=== PATIENT | male | born 1955 | race Caucasian/White ===

== ENCOUNTER 2022-12-24 10:00 | Outpatient (OUT) | payer MEDICARE, SELFPAY ==
[2022-12-24 10:30] LABS: Creatinine Urine Random 52.71 mg/dL (20.00-300.00); Protein Creatinine Ratio Urine 0.27
[2022-12-24 10:33] LABS: Basophils Absolute Auto 0.1 10^3/uL (0.0-0.1); Basophils Percent Auto 1.2 % (0.2-2.0); Eosinophils Absolute Auto 0.5 10^3/uL (0.0-0.7); Eosinophils Percent Auto 4.9 % (0.9-7.0); Hematocrit 45.6 % (42.0-54.0); Hemoglobin 15.1 g/dL (14.0-18.0); Immature Granulocytes Abs Auto 0.07 10^3/uL (0.00-0.03); Immature Granulocytes Pct Auto 0.6 % (0.0-0.5); Lymphocytes Absolute Auto 2.4 10^3/uL (1.2-3.8); Lymphocytes Percent Auto 21.5 % (20.5-60.0); Mean Corpuscular HGB Conc 33.1 g/dL (29.9-35.2); Mean Corpuscular Hemoglobin 28.8 pg (25.9-34.0); Mean Platelet Volume 11.3 fL (9.5-13.5); Monocytes Absolute Auto 0.8 10^3/uL (0.3-0.8); Monocytes Percent Auto 6.9 % (1.7-12.0); Neutrophils Absolute Auto 7.2 10^3/uL (1.4-6.5); Neutrophils Percent Auto 64.9 % (43.0-75.0); Platelet Count 383 10^3/uL (150-450); Red Blood Count 5.24 10^6/uL (4.70-6.10); Red Cell Distribution Width 13.1 % (11.0-15.0); White Blood Count 11.1 10^3/uL (4.0-11.0)
[2022-12-24 10:53] LABS: Estimated Average Glucose 329 mg/dL; Glycohemoglobin A1C 13.1 % (4.5-6.2)
[2022-12-24 11:22] LABS: Alanine Aminotransferase 32 U/L (16-63); Albumin Level 3.8 g/dL (3.4-5.0); Alkaline Phosphatase 141 U/L (46-116); Anion Gap 14.6; Aspartate Amino Transferase 13 U/L (15-37); BUN Creatinine Ratio 13.7; Bilirubin Total 0.5 mg/dL (0.2-1.0); Calcium 8.7 mg/dL (8.5-10.1); Carbon Dioxide 27.2 mmol/L (21.0-32.0); Chloride 96 mmol/L (98-107); Chol HDL Ratio 2.7; Cholesterol 189 mg/dL (<=200); Estimated GFR (African America >60 (>=60); Estimated GFR (Non-African Ame >60 (>=60); Globulin 3.9 g/dL; Glucose 345 mg/dL (74-106); HDL Cholesterol 70 mg/dL (40-60); Potassium 3.8 mmol/L (3.5-5.1); Sodium 134 mmol/L (136-145); Thyroid Stimulating Hormone 2.658 uIU/mL (0.358-3.740); Total Protein 7.7 g/dL (6.4-8.2); Triglycerides 105 mg/dL (<=150)
[2022-12-25 04:07] LABS: Triiodothyronine (T3) 87 ng/dL (71-180)
== END 2022-12-24 10:01 | disposition home or self-care (01) ==
LOC: LAB 10:03
PROVIDERS: PCP Internal Medicine; Visit Provider Internal Medicine
DX: I10 Essential (primary) hypertension (principal); E11.65 Type 2 diabetes mellitus with hyperglycemia; E03.9 Hypothyroidism, unspecified; E78.5 Hyperlipidemia, unspecified
CPT/HCPCS: 36415; 80053; 80061; 82570; 83036; 84156; 84436; 84443; 84480; 85025

== ENCOUNTER 2023-08-30 12:37 | Outpatient (OUT) | payer MEDICARE, SELFPAY ==
[2023-08-30 13:23] LABS: Creatinine Urine Random 58.98 mg/dL (20.00-300.00); Microalbumin Urine Random <1.3 mg/dL (<=30.0)
[2023-08-30 13:27] LABS: Basophils Absolute Auto 0.2 10^3/uL (0.0-0.1); Basophils Percent Auto 1.1 % (0.2-2.0); Eosinophils Absolute Auto 0.8 10^3/uL (0.0-0.7); Hematocrit 44.7 % (42.0-54.0); Hemoglobin 15.1 g/dL (14.0-18.0); Immature Granulocytes Abs Auto 0.05 10^3/uL (0.00-0.03); Immature Granulocytes Pct Auto 0.4 % (0.0-0.5); Lymphocytes Absolute Auto 2.9 10^3/uL (1.2-3.8); Mean Corpuscular HGB Conc 33.8 g/dL (29.9-35.2); Mean Corpuscular Hemoglobin 28.8 pg (25.9-34.0); Mean Corpuscular Volume 85.3 fL (80.0-94.0); Mean Platelet Volume 11.2 fL (9.5-13.5); Monocytes Absolute Auto 0.9 10^3/uL (0.3-0.8); Monocytes Percent Auto 6.7 % (1.7-12.0); Neutrophils Absolute Auto 8.9 10^3/uL (1.4-6.5); Neutrophils Percent Auto 64.8 % (43.0-75.0); Platelet Count 419 10^3/uL (150-450); Red Blood Count 5.24 10^6/uL (4.70-6.10); Red Cell Distribution Width 13.1 % (11.0-15.0); White Blood Count 13.7 10^3/uL (4.0-11.0)
[2023-08-30 13:52] LABS: Estimated Average Glucose 286 mg/dL; Glycohemoglobin A1C 11.6 % (4.5-6.2)
[2023-08-30 14:04] LABS: Alanine Aminotransferase 38 U/L (16-63); Albumin Globulin Ratio 1.2; Albumin Level 4.1 g/dL (3.4-5.0); Alkaline Phosphatase 130 U/L (46-116); Anion Gap 11.5; Aspartate Amino Transferase 17 U/L (15-37); BUN Creatinine Ratio 18.6; Bilirubin Total 0.6 mg/dL (0.2-1.0); Calcium 9.4 mg/dL (8.5-10.1); Carbon Dioxide 27.2 mmol/L (21.0-32.0); Chloride 100 mmol/L (98-107); Chol HDL Ratio 2.5; Cholesterol 185 mg/dL (<=200); Estimated GFR (African America >60 (>=60); Estimated GFR (Non-African Ame >60 (>=60); Globulin 3.5 g/dL; Glucose 237 mg/dL (74-106); HDL Cholesterol 73 mg/dL (40-60); Potassium 3.7 mmol/L (3.5-5.1); Sodium 135 mmol/L (136-145); TSH W/ REFLEX FT4 1.513 uIU/mL (0.358-3.740); Total Protein 7.6 g/dL (6.4-8.2); Triglycerides 63 mg/dL (<=150); VLDL CHOLESTEROL 12.6 mg/dL
== END 2023-08-30 12:38 | disposition home or self-care (01) ==
LOC: LAB 12:40
PROVIDERS: PCP Internal Medicine; Visit Provider Internal Medicine
DX: R80.9 Proteinuria, unspecified (principal); E11.29 Type 2 diabetes mellitus with other diabetic kidney complication; Z79.4 Long term (current) use of insulin; E78.49 Other hyperlipidemia; E03.8 Other specified hypothyroidism
CPT/HCPCS: 36415; 80053; 80061; 82043; 82570; 83036; 84443; 85025

== ENCOUNTER 2024-03-15 13:14 | Outpatient (OUT) | payer MEDICARE, SELFPAY ==
[2024-03-15 13:36] LABS: Basophils Absolute Auto 0.1 10^3/uL (0.0-0.1); Basophils Percent Auto 1.2 % (0.2-2.0); Eosinophils Absolute Auto 0.9 10^3/uL (0.0-0.7); Eosinophils Percent Auto 7.9 % (0.9-7.0); Hematocrit 48.9 % (42.0-54.0); Hemoglobin 15.9 g/dL (14.0-18.0); Immature Granulocytes Abs Auto 0.06 10^3/uL (0.00-0.03); Immature Granulocytes Pct Auto 0.5 % (0.0-0.5); Lymphocytes Absolute Auto 2.4 10^3/uL (1.2-3.8); Lymphocytes Percent Auto 20.6 % (20.5-60.0); Mean Corpuscular HGB Conc 32.5 g/dL (29.9-35.2); Mean Corpuscular Volume 86.2 fL (80.0-94.0); Mean Platelet Volume 10.7 fL (9.5-13.5); Monocytes Absolute Auto 0.8 10^3/uL (0.3-0.8); Monocytes Percent Auto 6.9 % (1.7-12.0); Neutrophils Absolute Auto 7.5 10^3/uL (1.4-6.5); Neutrophils Percent Auto 62.9 % (43.0-75.0); Platelet Count 415 10^3/uL (150-450); Red Blood Count 5.67 10^6/uL (4.70-6.10); White Blood Count 11.9 10^3/uL (4.0-11.0)
[2024-03-15 14:08] LABS: Alanine Aminotransferase 39 U/L (16-63); Albumin Globulin Ratio 1.1; Albumin Level 3.9 g/dL (3.4-5.0); Alkaline Phosphatase 114 U/L (46-116); Anion Gap 9.2; Aspartate Amino Transferase 19 U/L (15-37); BUN Creatinine Ratio 15.6; Bilirubin Total 0.8 mg/dL (0.2-1.0); Carbon Dioxide 31.8 mmol/L (21.0-32.0); Chloride 104 mmol/L (98-107); Estimated GFR (African America >60 (>=60 mL/min/1.73m^2); Estimated GFR (Non-African Ame >60 (>=60 mL/min/1.73m^2); Globulin 3.4 g/dL; Glucose 139 mg/dL (74-106); Sodium 141 mmol/L (136-145); Total Protein 7.3 g/dL (6.4-8.2)
== END 2024-03-15 13:15 | disposition home or self-care (01) ==
LOC: LAB 13:16
DX: R80.9 Proteinuria, unspecified (principal); I10 Essential (primary) hypertension; E11.29 Type 2 diabetes mellitus with other diabetic kidney complication; Z79.4 Long term (current) use of insulin
CPT/HCPCS: 36415; 80053; 85025